=== PATIENT | female | born 1990 | race Caucasian/White ===

== ENCOUNTER 2018-09-01 19:10 | Emergency (ER) | payer SELFPAY ==
[~2018-09-01] VITALS: Ht 165.1 cm; Wt 93.9 kg
--- OUTSIDE RECORDS SUMMARY | 2018-09-01 19:12 | XMS REPORT ---
Author [facility] Address Unknown Phone Unavailable Care Team Providers Care Profiler Name Role Phone Unavailable Unavailable Payers Payer Name Policy Type Policy Number Effective Date Expiration Date Problems This patient has no known problems. Allergies, Adverse Reactions, Alerts Allergy Name Allergy Type Status Severity Reaction(s) Onset Date Inactive Date Treating Clinician Comments cefuroxime DA Active MO 2016-03-26 00:00:00 Medications This patient has no known medications. Results Test Description Test Time Test Comments Text Results Atomic Results Result Comments HCG SERUM 2018-08-27 17:42:00 HCG SERUM (test code=HCG) 1397 0 - 6 NOT > 6 SUGGESTIVE OF EARLY RISES TWO FOLD EVERY 2 DAYS; SUGGEST RE CONFIRMING AFTER 2 DAYS. 150,000-200,[address] TRIMESTER 10,000 - 50,000 2ND & 3RD TRIMESTERResults in sanam-International Units/mL Is patient ? YHOW MANY WEEKS? 8 WEEKS- US PREG UT [id number] 16:50:00 Name: ROSELINE LOYA [facility] : 1990 Age/S: 27 / F [address] [place] [address] Blvd Unit #: [id number] Loc: [place] [address] Phys: MarcBon DO Acct: [id number] Dis Date: Status: REG ER PHONE #: [phone] Exam Date: 08/27/2018 1601 FAX #: [phone] Reason: PAIN EXAMS: CPT CODE: [id number] US PREG [place] TRANSVAGINAL 83043 PROCEDURE: FIRST TRIMESTER ULTRASOUND INDICATION: Abdominal pain in . Dates uncertain. Urine hCG positive. Quantitative hCG not available COMPARISON: None relevant TECHNIQUE: Grayscale, color and Doppler transabdominal and transvaginal imaging of the pelvis was performed with standard technique. Transvaginal ultrasound is obtained for further evaluation of the endometrium and adnexal regions. Limitations: Assessment limited secondary to patient body habitus and uterine length. FINDINGS: UTERUS: Anteverted, estimated 10.8 x 4.9 x 6 cm. Endometrial thickness 1.2 cm. Assessment on transvaginal images limited due to uterine size. Endometrial cavity not adequately visualized. Transabdominal images demonstrate a small elliptical fluid collection in the endometrial cavity measuring 5 x 2 x 6 mm with mean diameter 4 mm. Assessment is limited. Possible echogenic rim suggesting decidual response. No pole visible at this time. RIGHT OVARY: 4.3 x 2.7 x 3.4 cm. Unilocular anechoic cyst at the periphery of the ovary measuring 2.3 x 1.9 x 1.9 cm. Thin nearly imperceptible murphy. No international nurse al vascularity. Flow demonstrated in the ovary. LEFT OVARY: 3 x 2.3 x 2.4 cm. Normal morphology. Subcentimeter follicles. Internal flow with arterial waveform obtained. BLADDER: Unremarkable. Comments: No adnexal masses. No free intraperitoneal fluid. IMPRESSION: 1. Technically limited pelvic ultrasound demonstrating possible early intrauterine , estimated gestational age 5 weeks 1 day based on mean sac diameter. Recommend correlation with serial hCG values with follow-up ultrasound as warranted in 7-10 days. 2. Small simple right ovarian cyst. SL: [id number] PAGE 1 Signed Report (CONTINUED) Name: ROSELINE LOYA [facility] : [birth year] Age/S: 27 / F [address] [place] [address] Unit #: [id number] Loc: [place] [address] Phys: Bon Tran DO Acct: [id number] Dis Date: Status: REG ER PHONE #: Exam Date: 08/27/2018 1601 FAX #: [phone] Reason: PAIN EXAMS: CPT CODE: [id number] US PREG UT TRANSVAG INAL 01770 <Continued> at 1650 Reported and signed by: Angel Hayden M.D. CC: Bon Tran DO Technologist: Alexys Chaparro RDMS (AB) (OB) Trnscb Date/Time: 08/27/2018 (1649) Venita Orig Print D/T: S: 08/27/2018 (5467) Probe: [id number] PAGE 2 Signed Report - US PREG 1ST [id number] 16:50:00 Name: ROSELINE LOYA [facility] : 1990 Age/S: 27 / F [address] [place] [address] Blvd Unit #: [id number] Loc: [place] [address] Phys: Bon Tran DO Acct: [id number] Dis Date: Status: REG ER PHONE #: [phone] Exam Date: 08/27/2018 1601 FAX #: [phone] Reason: abd pain in ; 1st US EXAMS: CPT CODE: [id number] US PREG 1ST TRIMTR [id number] PROCEDURE: FIRST TRIMESTER ULTRASOUND INDICATION: Abdominal pain in . Dates uncertain. Urine hCG positive. Quantitative hCG not available COMPARISON: None relevant TECHNIQUE: Grayscale, color and Doppler transabdominal and transvaginal imaging of the pelvis was performed with standard technique. Transvaginal ultrasound is obtained for further evaluation of the endometrium and adnexal regions. Limitations: Assessment limited secondary to patient body habitus and uterine length. FINDINGS: UTERUS: Anteverted, estimated 10.8 x 4.9 x 6 cm. Endometrial thickness 1.2 cm. Assessment on transvaginal images limited due to uterine size. Endometrial cavity not adequately visualized. Transabdominal images demonstrate a small elliptical fluid collection in the endometrial cavity measuring 5 x 2 x 6 mm with mean diameter 4 mm. Assessment is limited. Possible echogenic rim suggesting decidual response. No pole visible at this time. RIGHT OVARY: 4.3 x 2.7 x 3.4 cm. Unilocular anechoic cyst at the periphery of the ovary measuring 2.3 x 1.9 x 1.9 cm. Thin nearly imperceptible murphy. No international nurse al vascularity. Flow demonstrated in the ovary. LEFT OVARY: 3 x 2.3 x 2.4 cm. Normal morphology. Subcentimeter follicles. Internal flow with arterial waveform obtained. BLADDER: Unremarkable. Comments: No adnexal masses. No free intraperitoneal fluid. IMPRESSION: 1. Technically limited pelvic ultrasound demonstrating possible early intrauterine , estimated gestational age 5 weeks 1 day based on mean sac diameter. Recommend correlation with serial hCG values with follow-up ultrasound as warranted in 7-10 days. 2. Small simple right ovarian cyst. SL: [id number] PAGE 1 Signed Report (CONTINUED) Name: ROSELINE LOYA [facility] : [birth year] Age/S: 27 / F [address] [place], [place] [address]vd Unit #: [id number] Loc: [place] [address] Phys: Bon Tran DO Acct: [id number] Dis Date: Status: REG ER PHONE #: Exam Date: 08/27/2018 1601 FAX #: [phone] Reason: abd pain in ; 1st US EXAMS: CPT CODE: [id number] US PREG 1ST TRIMTR 11018 <Continued> at 1650 Reported and signed by: Angel Hayden M.D. CC: Bon Tran DO Technologist: Alexys Chaparro RDMS (AB) (OB) Trnscb Date/Time: 08/27/2018 (1649) Venita Orig Print D/T: S: 08/27/2018 (637) Probe: PAGE 2 Signed Report BASIC METABOLIC [id number] 13:34:00* Test Item Value Reference Range Comments SODIUM (test code=NA) 136 mEq/L 134-147 POTASSIUM (test code=K) 3.5 mEq/L 3.4-5.0 CHLORIDE (test code=CL) 106 mEq/L 100-108 CARBON DIOXIDE (test code=CO2) 25 mEq/L 21-33 ANION GAP (test code=GAP) 9 0-20 GLUCOSE (test code=GLU) 85 mg/dL 70-110 BLOOD UREA NITROGEN (test code=BUN) 11 mg/dL 7-18 GLOMERULAR FILTRATION RATE (test code=GFR) 101.1 110-120 Units of measure=ml/min/1.73 m2 CREATININE (test code=CREAT) 0.7 mg/dL 0.6-1.3 CALCIUM (test code=CA) 8.7 mg/dL 8.0-10.5 HEPATIC FUNCTION [id number] 13:34:00* Test Item Value Reference Range Comments TOTAL PROTEIN (test code=PROT) 7.8 g/dL 6.4-8.2 ALBUMIN (test code=ALB) 4.00 g/dL 3.4-5.0 BILIRUBIN TOTAL (test code=BILT) 0.30 mg/dL 0.0-1.0 BILIRUBIN DIRECT (test code=BILD) 0.10 MG/DL 0.0-0.30 BILIRUBIN INDIRECT (test code=BILIND) 0.20 MG/DL SGOT/AST (test code=AST) 17 IUnit/L 15-37 SGPT/ALT (test code=ALT) 27 IUnit/L 15-65 ALKALINE PHOSPHATASE TOTAL (test code=ALKP) 47 IUnit/L 20-125 [id number] 13:34:00* Test Item Value Reference Range Comments LIPASE (test code=LIP) 82 IUnit/L 73-393 HCG SERUM [id number] 13:34:00* Test Item Value Reference Range Comments HCG SERUM QUAL (test code=HCGQL) SERUM POSITIVE NEGATIVE BASIC METABOLIC [id number] 13:30:00* Test Item Value Reference Range Comments SODIUM (test code=NA) 136 mEq/L 134-147 POTASSIUM (test code=K) 3.5 mEq/L 3.4-5.0 CHLORIDE (test code=CL) 106 mEq/L 100-108 CARBON DIOXIDE (test code=CO2) 25 mEq/L 21-33 ANION GAP (test code=GAP) 9 0-20 GLUCOSE (test code=GLU) 85 mg/dL 70-110 BLOOD UREA NITROGEN (test code=BUN) 11 mg/dL 7-18 GLOMERULAR FILTRATION RATE (test code=GFR) 101.1 110-120 Units of measure=ml/min/1.73 m2 CREATININE (test code=CREAT) 0.7 mg/dL 0.6-1.3 CALCIUM (test code=CA) 8.7 mg/dL 8.0-10.5 HEPATIC FUNCTION [id number] 13:30:00* Test Item Value Reference Range Comments TOTAL PROTEIN (test code=PROT) g/dL 6.4-8.2 ALBUMIN (test code=ALB) 4.00 g/dL 3.4-5.0 BILIRUBIN TOTAL (test code=BILT) mg/dL 0.0-1.0 BILIRUBIN DIRECT (test code=BILD) 0.10 MG/DL 0.0-0.30 SGOT/AST (test code=AST) 17 IUnit/L 15-37 SGPT/ALT (test code=ALT) 27 IUnit/L 15-65 ALKALINE PHOSPHATASE TOTAL (test code=ALKP) IUnit/L 20-125 [id number] 13:30:00* Test Item Value Reference Range Comments LIPASE (test code=LIP) 82 IUnit/L 73-393 HCG SERUM [id number] 13:30:00* Test Item Value Reference Range Comments HCG SERUM QUAL (test code=HCGQL) NEGATIVE BASIC METABOLIC [id number] 13:30:00* Test Item Value Reference Range Comments SODIUM (test code=NA) 136 mEq/L 134-147 POTASSIUM (test code=K) 3.5 mEq/L 3.4-5.0 CHLORIDE (test code=CL) 106 mEq/L 100-108 CARBON DIOXIDE (test code=CO2) 25 mEq/L 21-33 ANION GAP (test code=GAP) 9 0-20 GLUCOSE (test code=GLU) 85 mg/dL 70-110 BLOOD UREA NITROGEN (test code=BUN) 11 mg/dL 7-18 GLOMERULAR FILTRATION RATE (test code=GFR) 101.1 110-120 Units of measure=ml/min/1.73 m2 CREATININE (test code=CREAT) 0.7 mg/dL 0.6-1.3 CALCIUM (test code=CA) 8.7 mg/dL 8.0-10.5 HEPATIC FUNCTION [id number] 13:30:00* Test Item Value Reference Range Comments TOTAL PROTEIN (test code=PROT) g/dL 6.4-8.2 ALBUMIN (test code=ALB) 4.00 g/dL 3.4-5.0 BILIRUBIN TOTAL (test code=BILT) mg/dL 0.0-1.0 BILIRUBIN DIRECT (test code=BILD) 0.10 MG/DL 0.0-0.30 SGOT/AST (test code=AST) 17 IUnit/L 15-37 SGPT/ALT (test code=ALT) 27 IUnit/L 15-65 ALKALINE PHOSPHATASE TOTAL (test code=ALKP) IUnit/L 20-125 [id number] 13:30:00* Test Item Value Reference Range Comments LIPASE (test code=LIP) 82 IUnit/L 73-393 HCG SERUM [id number] 13:30:00* Test Item Value Reference Range Comments HCG SERUM QUAL (test code=HCGQL) SERUM POSITIVE NEGATIVE CBC W/AUTO [id number] 13:18:00* Test Item Value Reference Range Comments WHITE BLOOD CELL (test code=WBC) 9.31 x10 3/uL 4.5-11.0 RED BLOOD CELL (test code=RBC) 4.51 x10 6/uL 3.54-5.02 HEMOGLOBIN (test code=HGB) 13.4 g/dL 11.0-15.0 HEMATOCRIT (test code=HCT) 41.4 % 33.0-45.0 MEAN CELL VOLUME (test code=MCV) 91.8 fL 81.0-99.0 MEAN CELL HGB (test code=MCH) 29.7 pg 27.0-33.0 MEAN CELL HGB CONCETRATION (test code=MCHC) 32.4 g/dL 33.0-37.0 RED CELL DISTRIBUTION WIDTH CV (test code=RDW) 13.1 % 11.5-14.5 RED CELL DISTRIBUTION WIDTH SD (test code=RDW-SD) 43.9 fL 37.0-54.0 PLATELET COUNT (test code=PLT) 384 x10 3/uL 150-400 MEAN PLATELET VOLUME (test code=MPV) 8.8 fL 7.0-9.0 NEUTROPHIL % (test code=NT%) 65.7 % 56.0-77.0 IMMATURE GRANULOCYTE % (test code=IG%) 0.4 % 0.0-2.0 LYMPHOCYTE % (test code=LY%) 27.4 % 14.0-32.0 MONOCYTE % (test code=MO%) 5.5 % 4.8-9.0 EOSINOPHIL % (test code=EO%) 0.6 % 0.3-3.7 BASOPHIL % (test code=BA%) 0.4 % 0.0-2.0 NUCLEATED RBC % (test code=NRBC%) 0.0 % 0-0 NEUTROPHIL # (test code=NT#) 6.11 x10 3/uL 2.0-7.6 IMMATURE GRANULOCYTE # (test code=IG#) 0.04 x10 3/uL 0.00-0.03 LYMPHOCYTE # (test code=LY#) 2.55 x10 3/uL 1.0-3.8 MONOCYTE # (test code=MO#) 0.51 x10 3/uL 0.1-0.8 EOSINOPHIL # (test code=EO#) 0.06 x10 3/uL 0.0-0.2 BASOPHIL # (test code=BA#) 0.04 x10 3/uL 0.0-0.2 NUCLEATED RBC # (test code=NRBC#) 0.00 x10 3/uL 0.0-0.1 MANUAL DIFF REQUIRED (test code=MDIFF) NO URINALYSIS [id number] 12:37:00* Test Item Value Reference Range Comments UA COLOR (test code=COLU) YELLOW YEL/STRAW UA APPEARANCE (test code=APPU) SL CLOUDY CLEAR UA GLUCOSE DIPSTICK (test code=DGLUU) NEGATIVE NEGATIVE UA BILIRUBIN DIPSTICK (test code=BILU) NEGATIVE NEGATIVE UA KETONE DIPSTICK (test code=KETU) 1+ NEGATIVE UA SPECIFIC GRAVITY (test code=SGU) 1.024 1.005-1.030 UA BLOOD DIPSTICK (test code=HANG) NEGATIVE NEGATIVE UA PH DIPSTICK (test code=SAAD) 8.0 5.0-7.0 UA PROTEIN DIPSTICK (test code=PROU) NEGATIVE NEGATIVE UA UROBILINIOGEN DIPSTICK (test code=URO) 0.2 mg/dL 0.2-1.0 UA NITRITE DIPSTICK (test code=CECILE) NEGATIVE NEGATIVE UA LEUKOCYTE ESTERASE DIPSTICK (test code=LEUU) NEGATIVE NEGATIVE UA WBC (test code=WBCU) 0-3 WBC/HPF 0-3 UA RBC (test code=RBCU) 0-3 RBC/HPF 0-3 UA BACTERIA (test code=BACU) NONE SEEN /HPF NONE SEEN UA SQUAMOUS CELLS (test code=SQU) 11-25 /HPF NONE SEEN UA MUCUS (test code=MUCU) 1+ /LPF NONE SEEN COMMENTS: Clean Catch
[2018-09-01 20:16] LABS: BASOPHILS # (AUTO) 0.1 (0.0-0.1); BASOPHILS % 0.5 % (0.0-1.0); EOSINOPHILS # (AUTO) 0.1 (0.0-0.4); EOSINOPHILS % 0.9 % (0.0-6.0); HEMATOCRIT 38.6 % (34.2-44.1); HEMOGLOBIN 12.9 g/dL (12.0-16.0); LYMPHOCYTES # (AUTO) 3.6 (1.0-3.2); LYMPHOCYTES % 30.6 % (18.0-39.1); MEAN CORPUSCULAR HEMOGLOBIN 29.9 pg (28-32); MEAN CORPUSCULAR HGB CONC 33.4 g/dL (31-35); MEAN CORPUSCULAR VOLUME 89.6 fL (81-99); MONOCYTES # (AUTO) 0.9 (0.2-0.8); MONOCYTES % 7.9 % (4.4-11.3); NEUTROPHILS % 59.8 % (38.7-80.0); PLATELET COUNT 384 x10e3/uL (140-360); RED BLOOD COUNT 4.31 x10e6/uL (3.6-5.1); RED CELL DISTRIBUTION WIDTH 13.6 % (11.7-14.4)
[2018-09-01 20:30] LABS: ALANINE AMINOTRANSFERASE 15 IU/L (0-55); ALBUMIN 3.7 g/dL (3.5-5.0); ALBUMIN/GLOBULIN RATIO 1.1 (0.8-2.0); ALKALINE PHOSPHATASE 43 IU/L (40-150); ANION GAP 12.9 mmol/L (8-16); BLOOD UREA NITROGEN 12 mg/dL (7-26); BUN/CREATININE RATIO 14 (6-25); CALCIUM 9.5 mg/dL (8.4-10.2); CARBON DIOXIDE 25 mmol/L (22-29); CHLORIDE 104 mmol/L (98-107); CREATININE, SERUM 0.86 mg/dL (0.57-1.11); EST GLOMERULAR FILTRATION RATE > 60 ML/MIN (60-); GLUCOSE 93 mg/dL (74-118); POTASSIUM 3.9 mmol/L (3.5-5.1); SODIUM 138 mmol/L (136-145)
[2018-09-01 20:45] LABS: HCG,QUANTITATIVE 12937.99 mIU/mL (0-10)
[2018-09-01 21:08] LABS: BILIRUBIN,URINE NEGATIVE (NEGATIVE); CLARITY,URINE CLEAR (CLEAR); COLOR,URINE YELLOW (YELLOW); KETONES,URINE NEGATIVE (NEGATIVE); LEUKOCYTE ESTERASE ,URINE NEGATIVE (NEGATIVE); NITRITE,URINE NEGATIVE (NEGATIVE); PROTEIN,URINE DIPSTICK NEGATIVE (NEGATIVE); URINE UROBILINOGEN 0.2 mg/dL (0.2 - 1)
[2018-09-01 21:16] LABS: BACTERIA,URINE RARE /HPF; EPITHELIAL CELLS,URINE FEW /LPF; WBC,URINE (MAN) 0-5 /HPF (0-5)
--- NOTE | 2018-09-01 21:48 | Diagnostic Imaging Report ---
EXAM: First Trimester Obstetric Pelvic Ultrasound INDICATION: vag bleeding COMPARISON: None TECHNIQUE: Grayscale transverse and sagittal transvaginal images were obtained of the pelvis. CLINICAL HISTORY: 27 year old A0 Last menstrual period: Not available FINDINGS: Uterus: Orientation: Normal Size: 10.8 x 5.1 x 6 cm, normal Mass: Anterior upper body 1.8 x 1.9 x 2.4 cm subserosal fibroid. Cervix: Nabothian cyst. Gestational Sac: Location: Intrauterine Average sac diameter: 1.2 cm Estimated sonographic GA: 6 weeks 0 days Appearance: Normal in contour Subchorionic hemorrhage: None Yolk sac: Not visualized Embryo/Fetus: Not visualized Right ovary Size: 3.5 x 3 x 4.8 cm Mass/Cyst: 2.2 x 2.2 x 2.1 cm cyst. Left ovary Size: 3.3 x 2.7 x 2.6 cm Mass/Cyst: None Cul-de-sac: No free fluid IMPRESSION: 1. Intrauterine of uncertain viability. 2. Estimated sonographic gestational age: 6 weeks 0 days Signed by: DR. Louis Jenkins MD on 09/01/2018 9:44 PM
[2018-09-01 23:17] VITALS: BP 145/92
== END 2018-09-01 23:15 | disposition home or self-care (01) ==
LOC: ER 19:10
DX: O20.9 Hemorrhage in early pregnancy, unspecified (principal); R10.84 Generalized abdominal pain
CPT/HCPCS: 36415; 76805; 76817; 80053; 81001; 84702; 85025; 87086; 99283